=== PATIENT | female | born 2000 | race Caucasian/White ===

== ENCOUNTER 2020-09-07 07:15 | Emergency (ER) | payer OTHER ==
[~2020-09-07] VITALS: Ht 154.9 cm; Wt 53.1 kg
== END 2020-09-07 11:01 | disposition home or self-care (01) ==
LOC: ER 07:15
DX: N93.8 Other specified abnormal uterine and vaginal bleeding (principal); O20.0 Threatened abortion; Z3A.11 11 weeks gestation of pregnancy